=== PATIENT | female | born 1945 | race Caucasian/White ===

== ENCOUNTER 2017-07-22 07:30 | Inpatient (IN) ==
[2017-07-18 12:54] LABS: Appearance,Urine CLEAR; Bilirubin,Urine NEG (NEG); Color,Urine STRAW; Glucose,Urine (UA) NEGATIVE (NEG); Leukocyte Esterase,Urine NEG /uL (NEG); Nitrate,Urine NEG (NEG); Protein,Urine NEG (NEG); Specific Gravity,Urine 1.008 (1.000-1.035); Urine Blood NEG mg/dL (<0.03); Urobilinogen,Urine NEG (NEG)
[2017-07-18 13:15] LABS: Basophils # (Auto) 0 K/mcL (0.0-0.3); Basophils % (Auto) 0.4 % (0.0-2.0); Eosinophils # (Auto) 0.2 K/mcL (0.0-0.7); Eosinophils % (Auto) 2.2 % (0.0-7.0); Granulocytes % (Auto) 58.7 % (38.0-78.0); Lymphocytes # (Auto) 2.9 K/mcL (1.5-4.8); Lymphocytes % (Auto) 30.2 % (15.5-49.0); Mean Cell Volume 91.1 fL (80.0-100.0); Mean Corpuscular HGB Conc 33.7 g/dL (31.0-36.0); Mean Corpuscular Hemoglobin 30.7 pg (26.0-34.0); Monocytes # (Auto) 0.8 K/mcL (0.1-0.9); Monocytes % (Auto) 8.5 % (1.0-12.0); Platelet Count 258 K/mcL (140-440); RBC 4.62 M/mcL (4.00-5.20)
[2017-07-18 13:46] LABS: Blood Urea Nitrogen 15 mg/dl (8-23)
[~2017-07-22 07:30] MED LIST: ACETAMINOPHEN 500 MG TABLET PO SCH; CELECOXIB 200 MG CAPSULE PO SCH; KETOROLAC 30 MG, ROPIVACAINE HCL/PF 49.5 ML, EPINEPHrine 0.5 MG, 0.9 % SODIUM CHLORIDE ... IJ SCH; PREGABALIN 75 MG CAPSULE PO SCH; ceFAZolin 1 GM VIAL IV SCH; oxyCODONE 10 MG TAB.ER.12H PO SCH
[2017-07-22] MEDS ORDERED: ONDANSETRON 4 MG/2 ML VIAL IV ONE (14:00)
[2017-07-22] MEDS ORDERED: TRANEXAMIC ACID 1,000 MG/10 ML VIAL IV ONE ×2 (14:00→15:49)
[2017-07-22] MEDS ORDERED: PROPOFOL 200 MG/20 ML VIAL IV ONE (14:00)
[2017-07-22] MEDS ORDERED: ROPIVACAINE HCL/PF 20 ML VIAL IJ ONE (14:00)
[2017-07-22] MEDS ORDERED: MIDAZOLAM 5 MG/5 ML VIAL IV ONE (14:00)
[2017-07-22] MEDS ORDERED: DEXAMETHASONE 10 MG/ML VIAL IV ONE (14:00)
[2017-07-22] MEDS ORDERED: LIDOCAINE HCL/PF 100 MG/5 ML SYRINGE IV ONE (14:00)
[2017-07-22] MEDS ORDERED: GENTAMICIN SULFATE 800 MG/20 ML VIAL IR ONE (15:27)
[2017-07-22] MEDS ORDERED: NALOXONE HCL 0.4 MG/ML VIAL IV PRN (15:39)
[2017-07-22] MEDS ORDERED: FLUMAZENIL 0.1 MG/ML ML IV PRN (15:39)
[2017-07-22] MEDS ORDERED: BENZOCAINE/MENTHOL 1 LOZENGE PO PRN ×2 (15:39→15:49)
[2017-07-22] MEDS ORDERED: METHOCARBAMOL 1,000 MG/10 ML VIAL IV PRN ×2 (15:39→15:49)
[2017-07-22] MEDS ORDERED: ONDANSETRON 4 MG/2 ML VIAL IV PRN ×2 (15:39→15:49)
[2017-07-22] MEDS ORDERED: MEPERIDINE 25 MG/ML SYRINGE IV PRN (15:39)
[2017-07-22] MEDS ORDERED: IPRATROPIUM/ALBUTEROL 3 ML AMPUL.NEB NEB PRN (15:39)
[2017-07-22] MEDS ORDERED: LACTATED RINGERS 250 ML IV PRN (15:39)
[2017-07-22] MEDS ORDERED: diphenhydrAMINE 50 MG/ML VIAL IV PRN (15:39)
[2017-07-22] MEDS ORDERED: HYDROmorphone 2 MG/ML SYRINGE IV PRN ×2 (15:39→15:49)
[2017-07-22] MEDS ORDERED: fentaNYL 100 MCG/2 ML VIAL IV PRN (15:39)
[2017-07-22] MEDS ORDERED: LACTATED RINGERS 1,000 ML IV SCH (15:45)
[2017-07-22] MEDS ORDERED: TEMAZEPAM 15 MG CAPSULE PO PRN (15:49)
[2017-07-22] MEDS ORDERED: MAGNESIUM HYDROXIDE 30 ML ORAL.SUSP PO PRN (15:49)
[2017-07-22] MEDS ORDERED: HYDROcodone/APAP 10/325MG TABLET PO PRN (15:49)
[2017-07-22] MEDS ORDERED: BISACODYL 10 MG SUPP.RECT PR PRN (15:49)
[2017-07-22] MEDS ORDERED: POLYETHYLENE GLYCOL 3350 17 GM PACKET PO PRN (15:49)
[2017-07-22] MEDS ORDERED: ACETAMINOPHEN 325 MG TABLET PO PRN (15:49)
[2017-07-22] MEDS ORDERED: FLEETS ADULT ENEMA PR PRN (15:49)
--- NOTE | 2017-07-22 15:49 | Brief Operative Note ---
Date of procedure: 07/22/17 Pre-op diagnosis: Left knee djd severe in 3 compartments Post-op diagnosis: same Procedure: Left robotic TKA Grafts/Implants: Yes Anesthesia: SID Surgeon: Star Al Lidar Scientist: Brandyn Zapata Estimated blood loss (cc): 20 Tourniquet Time (Minutes): 66 Specimens Removed/Pathology: none sent Condition: stable Disposition: PACU
[2017-07-22] MEDS ORDERED: ALBUTEROL SULFATE 1 PUFF INHALER INH PRN (16:11)
--- NOTE | 2017-07-22 16:29 | Operative Note ---
DATE OF OPERATION: 07/22/2017 PREOPERATIVE DIAGNOSIS: Left knee degenerative arthritis, severe in all three compartments. POSTOPERATIVE DIAGNOSIS: Left knee degenerative arthritis, severe in all three compartments. PROCEDURE: Left total knee arthroplasty using a 79 Group robot with cemented components. SURGEON: Star Al MD. FIRER RETORT: Brandyn Zapata PA-C. ANESTHESIA: General LMA anesthesia. IMPLANTS PLACED: Tibial baseplate with a 50 mm stem cemented with a cruciate retained design on the femur, cemented femoral component and 9 mm poly. DESCRIPTION OF PROCEDURE: The patient was brought to the operating room and put to sleep with general LMA anesthesia. Once asleep, the patient had the left knee sterilely prepped and draped in the usual sterile fashion. Once confirmed as the operative site and preop antibiotics and tranexamic acid had been given, we then inflated the tourniquet to 250 pounds of pressure. Once done, we made a midline incision with a mid vastus approach. Once this was done, I then exposed the severe arthritis of the medial compartment with quite a bit of varus deformity and flexion contracture. We then proceeded with placing the pins. The extraarticular pins were used and registered the center of hip rotation. The alignment of the knee before we started any of the case was 7 degrees flexion contracture and 4 to 5 degrees of varus. We then placed an intraarticular pin on the femur and tibia and then registered the medial and lateral malleoli. We then registered 30 points on the femur and the tibia and balanced the knee after removing osteophytes. Once we had done this and we had removed the osteophytes, we balanced the knee in 15 degrees of flexion and 90 degrees of flexion. Once perfectly balanced and setting the external rotation at about 40 degrees and setting the rotation of the tibial baseplate, we then proceeded by bringing in the robot, registered the robot and made our distal femoral cut, our posterior chamfer cut, our anterior and posterior cuts. We then cut the tibial cut and the bony fragments were removed. Once this was done, we then removed more osteophytes and the remnants of the meniscus. The bony fragments were removed and a large cyst on the medial femoral condyle was bone grafted. We then placed the tibia and the femur, setting rotation of the tibia using the robot. A size 9 poly was used. It lacked 1 degree extension, so we performed a little bit more of a medial collateral ligament release because laterally it was slightly looser the medial. We opened up the knee. It seemed to balance very nicely at this point throughout the full range of motion. We then cemented into place the femoral and tibial components, removing excess cement and placed a 9 poly. The patella had been cut from the original arthritic thickness of 22 to a total thickness of 13, and then placed a 36 mm patellar button that covered about 90% of the patellar surface. We irrigated thoroughly and deflated the tourniquet at about 1 hour and 6 minutes. Once this was done, we then reflushed the knee, controlled bleeding with the Bovie, and had injected the soft tissues in and about the knee with a post-inject formula. Once this was done, we used #1 Stratafix x2 stitches. These were run along the medial capsule. There was no complication. We closed the skin with 2-0 Vicryl and adhesive closure. The patient tolerated this well. RBH:donnell Job ID: [id number] Doc ID: [id number] Star Al MD
--- NOTE | 2017-07-22 16:34 | XRay Report ---
CLINICAL INFORMATION: Postsurgical follow-up TECHNIQUE: AP and lateral left knee COMPARISON: None. FINDINGS: Status post left total arthroplasty. Distal femoral and proximal tibial complements are in anatomic positions. There is postsurgical intra-articular and soft tissue gas IMPRESSION: Status post left total hip arthroplasty Interpreted and Authenticated by: Nicolas Power 07/22/17
[2017-07-22] MEDS: KETOROLAC 15 MG/ML VIAL IV SCH ×2 (17:44→23:42)
[2017-07-22] MEDS: 0.45 % SODIUM CHLORIDE 1,000 ML IV SCH (17:45)
[2017-07-22] MEDS ORDERED: HYDROcodone/APAP 10/325MG TABLET PO SCH (21:00)
[2017-07-22] MEDS ORDERED: SENNOSIDES 1 TABLET PO SCH (21:00)
[2017-07-22] MEDS ORDERED: METOPROLOL TARTRATE 25 MG TABLET PO SCH (21:00)
[2017-07-22] MEDS: DOCUSATE SODIUM 100 MG CAPSULE PO SCH (21:17)
[2017-07-22] MEDS: FAMOTIDINE 20 MG TABLET PO SCH (21:17)
[2017-07-22] MEDS: ASPIRIN 325 MG ENTERIC COATED TABLET PO SCH (21:17)
[2017-07-22] MEDS: ceFAZolin 1 GM VIAL IV SCH (21:22)
[2017-07-22] MEDS: 0.9 % SODIUM CHLORIDE 10 ML SYRINGE IV SCH (21:23)
[2017-07-23] MEDS: ceFAZolin 1 GM VIAL IV SCH (04:09)
[2017-07-23] MEDS: 0.9 % SODIUM CHLORIDE 10 ML SYRINGE IV SCH (04:09)
[2017-07-23] MEDS: 0.45 % SODIUM CHLORIDE 1,000 ML IV SCH (04:54)
[2017-07-23] MEDS: KETOROLAC 15 MG/ML VIAL IV SCH ×2 (05:48→11:31)
[2017-07-23] MEDS ORDERED: PANTOPRAZOLE 40 MG TABLET PO SCH (07:30)
[2017-07-23] MEDS: ASPIRIN 325 MG ENTERIC COATED TABLET PO SCH (08:40)
[2017-07-23] MEDS: FAMOTIDINE 20 MG TABLET PO SCH (08:40)
[2017-07-23] MEDS: DOCUSATE SODIUM 100 MG CAPSULE PO SCH (08:40)
[2017-07-23] MEDS ORDERED: SERTRALINE 50 MG TABLET PO SCH (09:00)
[2017-07-23] MEDS ORDERED: HYDROcodone/APAP 10/325MG TABLET PO SCH (09:00)
[2017-07-23] MEDS ORDERED: ESTRADIOL 1 MG TABLET PO SCH (09:00)
--- NOTE | 2017-07-23 09:19 | Orthopedic Progress Note ---
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 Chief Complaint: [minimal pain and is doing well with no nausea or vomiting and pain is 2-3] Objective Vital signs: Vital Signs Temp Pulse Pulse Resp BP Pulse Ox 07/23/17 06:47 97.4 F 16 127/63 95 07/23/17 05:07 98.0 F 73 18 127/65 93 07/23/17 00:18 97.8 F 85 18 143/69 94 07/22/17 20:00 97.2 F 86 18 150/75 97 07/22/17 19:49 96 07/22/17 17:51 97 07/22/17 17:35 81 151/77 98 07/22/17 17:20 81 156/79 97 07/22/17 17:05 85 153/87 95 07/22/17 16:50 96.3 F L 80 14 149/77 95 07/22/17 16:42 97.6 F 82 13 151/75 100 07/22/17 16:36 80 12 140/64 100 07/22/17 16:31 84 16 150/71 100 07/22/17 16:26 78 19 139/68 97 07/22/17 16:21 76 18 119/61 97 07/22/17 16:16 75 13 116/62 96 07/22/17 16:11 74 13 113/57 93 07/22/17 16:06 97.2 F 75 14 113/87 99 07/22/17 09:27 97.7 F 83 16 153/83 96 Intake and Output 07/22/17 07/23/17 07/23/17 21:59 05:59 13:59 Intake Total 2340 / 2340 800 / 800 Output Total 302 / 302 1151 / 1151 350 / 350 Balance 2037 -351 / -351 -350 / -350 Intake: Oral 490 / 490 800 / 800 Other 1850 / 1850 Output: Void Amount 200 / 200 1150 / 1150 350 / 350 # of times incontinent of 2 / 2 1 / 1 urine Estimated Blood Loss 100 / 100 Other: Meal Dinner Percent of Meal Consumed 100% Feeding Ability Assist with Tray Set Up Weight 189 lb Intake & Output: Intake & Output 07/22/17 07/23/17 07/23/17 21:59 05:59 13:59 Intake Total 2340 / 2340 800 / 800 Output Total 302 / 302 1151 / 1151 350 / 350 Balance 2037 -351 / -351 -350 / -350 Weight 189 lb Intake: Oral 490 / 490 800 / 800 Other 1850 / 1850 Output: Void Amount 200 / 200 1150 / 1150 350 / 350 # of times incontinent of 2 / 2 urine Estimated Blood Loss 100 / 100 Other: Meal Dinner Percent of Meal Consumed 100% Feeding Ability Assist with Tray Set Up Incision: Yes healing Incision clean and dry: Yes Dressing: Yes clean Weight bearing status: full Neurological exam IM: Yes oriented X3, Yes neurovascular intact Extremities exam IM: Yes Foot pink and warm (dc home today), Yes neurovascular intact - Labs CBC & BMP: 07/23/17 05:06 07/18/17 11:11 Labs: Orthopedic Labs 07/18/17 11:11 PT 13.4 INR 1.0 APTT 34 07/23/17 07/18/17 05:06 11:12 Hgb 14.2 Hct 35.5 L 42.1
--- NOTE | 2017-07-23 09:21 | Discharge Summary ---
Ortho Discharge - TKA - Patient Instructions Diet: Regular Diet Activity: activity as tolerated, weight bearing as tolerated Total Knee Protocol: For Total Knee: Start ROM DOUG with stationary bike or rocking chair. Work on gaining full extension of knee. Posterior dislocation precautions provided. Hip abductor strengthening and gait training instructions provided. Apply Cryocuff as instructed. Dressing Care: Aquacel Ag - leave on for 5 days Patient Education: Total Knee Replacement (DC) Additional Instructions: Discharge Instructions: Do the exercises at home that physical therapy gave you. You are scheduled to start physical therapy at [facility] in [place] ([phone]) on at 11:00 am, please arrive 15 minutes early for paperwork. Take your prescription, photo ID, insurance cards, and current medication list with you to your first physical therapy appointment. Take your prescription to belt picker any medication or equipment (such as walker, crutches, toilet riser or C.P.M.) Wear comfortable clothing for your physical therapy. Weight bearing as tolerated. You have Dermabond (a dressing with a mesh-like appearance), leave open to air. Do not remove this dressing. You may start showering on post op day #2. The Dermabond dressing can get wet, do not scrub dressing. Pat dry. To avoid constipation while taking any narcotic pain medication, take an over the counter stool softener/laxative. Use your Cryocuff or ice packs as directed, on for 20 minutes at a time throughout the day. This and elevation will help with pain and swelling. Call your physician for fevers above 100.5 or pain not controlled by medication. Your prescriptions are with your discharge information. Some medications were electronically transmitted to your pharmacy of choice. - Follow Up Plan Follow Up Appointments: Star Al MD [Physician] - 08/04/17 10:10 am Disposition: Home, Self-Care Prognosis: Good Rehab Potential: Good I certify that the patient requires SNF services: No Overall status at discharge: patient is progressing back to baseline - Orders For Discharge Prescriptions: Aspirin [Ecotrin] 325 mg PO BID #28 tab.ec HYDROcodone/APAP 10/325MG [Mcroberts 10/325Mg] 1 - 2 tab PO Q4H PRN #60 tablet PRN Reason: Pain Additional Discharge Orders: Physical Therapy at Discharge - TKA Location: Determined By Patient Toilet Riser Discharge Order Location: Determined By Patient Walker Location: Determined By Patient
[2017-07-23] MEDS ORDERED: PNEUMOCOCCAL 23-VAL P-SAC VAC 0.5 ML VIAL IM ONE (10:00)
[2017-07-23] MEDS ORDERED: FLU VACC QS2017-18 36MOS UP/PF 60 MCG/0.5 ML SYRINGE IM ONE (10:00)
[2017-07-25] MEDS ORDERED: NAPROXEN 250 MG TABLET PO SCH (08:00)
== END 2017-07-23 11:53 | disposition home or self-care (01) | DRG 470 ==
LOC: MEDSUR 09:12
PROVIDERS: ADMIT Orthopaedic Surgery; ATTEND Orthopaedic Surgery